=== PATIENT | male | born 1970 | race Caucasian/White ===

== ENCOUNTER 2017-03-28 18:18 | Emergency (ER) ==
[2017-03-28 18:27] VITALS: BP 177/107; TEMP 99.4; BMI 28.7
--- NOTE | 2017-03-28 18:42 | ED.PDOC ---
General ED Provider: Dr. JAH BUTLER JR Chief Complaint: Laceration Stated Complaint: doing workwork with router table last pm--router fell out of table while he was examining tool and cut his rt 4th and 5th finger--cleaned with water and bactine/iodine--arrived with splints and bandages in place[End] Time Seen by Physician: 18:40 Mode of Arrival: Walk-In Information Source: Patient Exam Limitations: No limitations Primary Care Provider: ISRRAEL VIVEROS Nursing and Triage Documentation Reviewed and Agree: No Review of Systems - Review Of Systems Constitutional: Reports: No symptoms Eyes: Reports: No symptoms Ears, Nose, Mouth, Throat: Reports: No symptoms Respiratory: Reports: No symptoms Cardiac: Reports: No symptoms GI: Reports: No symptoms : Reports: No symptoms Musculoskeletal: Reports: Other Skin: Reports: Lesions Neurological: Reports: No symptoms Endocrine: Reports: No symptoms Hematologic/Lymphatic: Reports: No symptoms All Other Systems: Other Past Medical History - Past Medical History Endocrine: Reports: DM 2 Cardiovascular: Reports: None Respiratory: Reports: None Hematological: Reports: Anemia Gastrointestinal: Reports: Liver (hep c ) Genitourinary: Reports: None Neuro/Psych: Reports: None Musculoskeletal: Reports: None Cancer: Reports: None - Surgical History General Surgical History: Reports: Unknown (mole on back) - Family History Family History: Reports: Unknown - Social History Smoking Status: Current every day smoker, Heavy tobacco smoker Hx Substance Use: No Alcohol Screening: Occasionally - Immunizations Tetanus Shot up to Date: Yes (2 years) Physical Exam - Physical Exam Appearance: Well-appearing, Thin Pain Distress: Moderate Neck: Supple Respiratory: Airway patent Skin: Warm, Dry, Normal color (fifth right finger with dorsolateralcrosshatchlesion mid prox digit to mid distal phalanx- open shallow no current bleeding no exudate- similar lesion dorsolateral fourth digit- about 15 v shaped cuts not draining not bleeding no sutures indicated no evidence of infection) Neurological: Sensation intact, Motor intact, Reflexes intact, Cranial nerves intact, Alert, Oriented Psychiatric: Affect appropriate, Mood appropriate Critical Care Note - Critical Care Note Total Time (mins): 0 Course - Course Vital Signs: Temp Pulse Resp BP Pulse Ox 03/28/17 18:19 99.4 F 111 H 20 177/107 H 96 Departure - Departure Time of Disposition: 18:48 Disposition: HOME SELF-CARE Discharge Problem: Laceration - injury Instructions: Finger Laceration (ED), Laceration Without Closure (ED) Condition: Good Pt referred to PMD for follow-up: Yes Additional Instructions: recheck PMD two weeks may follow up with [facility] return if red swollen draining or increasing pain ice 10 minutes three times a day as needed no use of right hand for three days change bandage daily use antibiotic ointment until dry Prescriptions: Hydrocodone Bit/Acetaminophen [[place] 5-325] 1 - 2 tab PO Q6HR PRN #20 tablet PRN Reason: pain Cephalexin [Keflex] 500 mg PO QID #40 capsule Allergies/Adverse Reactions: Allergies No Known Allergies Allergy (Verified 03/28/17 18:26) Home Medications: Ambulatory Orders Cephalexin [Keflex] 500 mg PO QID #40 capsule 03/28/17 Hydrocodone Bit/Acetaminophen [[place] 5-325] 1 - 2 tab PO Q6HR PRN #20 tablet 01/13
== END 2017-03-28 19:10 | disposition home or self-care (01) ==
LOC: ED 18:18
DX: S61.214A Laceration without foreign body of right ring finger without damage to nail, initial encounter (principal); S61.216A Laceration without foreign body of right little finger without damage to nail, initial encounter; W29.8XXA Contact with other powered hand tools and household machinery, initial encounter; F17.210 Nicotine dependence, cigarettes, uncomplicated
CPT/HCPCS: 99282